=== PATIENT | female | born 2000 | race Caucasian/White ===

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

== ENCOUNTER 2020-06-22 11:40 | Emergency (ER) | payer SELFPAY ==
[~2020-06-22] VITALS: Ht 170.2 cm; Wt 64.0 kg
[2020-06-22 11:49] VITALS: BP 111/67
== END 2020-06-22 13:23 | disposition home or self-care (01) ==
LOC: ED 12:00
DX: B34.9 Viral infection, unspecified (principal); Z20.828 Contact with and (suspected) exposure to other viral communicable diseases; J02.9 Acute pharyngitis, unspecified; R05 Cough; M54.5 Low back pain; M54.2 Cervicalgia; R51 Headache; M79.10 Myalgia, unspecified site
CPT/HCPCS: 36415; 87635; 99283